=== PATIENT | male | born 1975 | race Caucasian/White ===

== ENCOUNTER 2017-06-03 08:54 | Emergency (ER) | payer SELFPAY ==
[2017-06-03 08:57] VITALS: BP 132/85; BMI 27.3
--- NOTE | 2017-06-03 09:22 | DR.GENAD ---
HPI - PCP Primary Care Physician: ELVIRA - HPI Comment HPI Comment: NO DRAINAGE OR FEVER. STARTED 3 DAYS AGO. - Complaint/Symptoms Chief Complaint Doctors Comments: REDNESS AND PAIN ABOVE LT KNEE. Chief Complaint:: PT. C/O POSSIBLE STAPH INFECTION TO ABOVE LEFT KNEE. AREA APPEARED ON SATURDAY. NO ACTIVE DRAINING BUT AREA IS REDDENED AND PAINFUL. - Nurses notes reviewed Nurses Notes Review: Yes - Source History Provided: Patient - Mode of Arrival Mode of Arrival: Ambulatory - Timing Onset of Chief Complaint: 05/31/17 Came on: Suddenly - Duration Duration: Constant Duration: Days - Severity Severity: Moderate PMH - PMH Past Medical History: No Past Surgical History: Yes Surgical History: Other Past Surgical History Comment: CARPAL TUNNEL - Family History History of Family Medical Conditions: No - Social History Does patient currently use any type of tobacco product: No Have you used tobacco products in the last 12 months: No Type of Tobacco Use: None Does any household member use tobacco: No Alcohol Use: None Do you use any recreational Drugs:: No Lives With: Spouse Lives Where: Home - infectious screening In the last 2 months have you had wt loss of >10#?: NO Have you had fever, night sweats or hemotysis?: No Have you traveled outside the country in the last 6 months?: No Isolation: Standard ROS - Review of Systems Constitutional: No Symptoms Reported Eyes: No Symptoms Reported ENTM: No Symptoms Reported Respiratoy: No Symptoms Reported Cardiovascular: No Symptoms Reported Gastrointestinal/Abdominal: No Symptoms Reported Genitourinary: No Symptoms Reported Neurological: No Symptoms Reported Musculoskeletal: No Symptoms Reported Integumentary: Other (REDNESS AND SWELLING BELOW LEFT KNEE. NO DRAINAGE.) PE - Vital Signs Vitals: Temperature 98.0 F Pulse Rate 78 Respiratory Rate 17 Blood Pressure 132/85 O2 Sat by Pulse Oximetry 97 - General Limitations: No Limitations General Appearance: Alert - Head Head Exam: Normal Inspection - Eyes Eye exam: Normal Appearance - ENT ENT Exam: Normal External Ear Exam External Ear Exam: Normal External Inspection TM/Canal Exam: Bilateral Normal Nose Exam: Normal Nose Exam Mouth Exam: Normal Inspection Throat Exam: Normal Inspection - Neck Neck Exam: Trachea Midline - Chest Chest Inspection: Symmetric Chest Wall Rise - Respiratory Respiratory Exam: Normal Lung Sounds Bilat Respiratory Exam: Bilateral Clear to Auscultation - Cardiovascular Cardiovascular Exam: Regular Rate, Normal Rhythm, Normal Heart Sounds - Abdominal Exam Abdominal Exam: Normal Bowel Sounds, Soft. negative: Tenderness - Extremities Extremities Exam: Tenderness (BELOW LEFT KNEE OVER AREA OF REDNEE AND TENDERNESS.) - Back Back Exam: Normal Inspection - Neurologic Neurological Exam: Alert, Oriented X3 - Psychiatric Psychiatric Exam: Normal Affect, Normal Mood - Skin Skin Exam: Normal Color MDM - Differential Diagnosis Differential Diagnosis: CELLULITIS Course - Treatment Treatment: SEE ORDERS. - Education/Counseling Education/Counseling: Patient, Education Educated On: Diagnosis, Needs for Follow Up - Diagnosis Discharge Problem: Cellulitis - Discharge Plan Disposition: 01 HOME, SELF-CARE Condition: Stable Prescriptions: Ibuprofen [MOTRIN TAB 600 MG *] 600 mg PO TID PRN #20 tab PRN Reason: Pain/Inflammation Sulfamethoxazole-Trimethoprim [BACTRIM DS TAB 800/160 MG *] 1 tab PO BID #20 tab Tramadol HCl 50 mg PO Q8H PRN #12 tablet PRN Reason: - Follow ups/Referrals Follow ups/Referrals: MARY FELIX [Primary Care Provider] - 3 days - Instructions Instructions: Cellulitis Additional Instructions: RETURN TO ED IF WORSE.
== END 2017-06-03 09:41 | disposition home or self-care (01) ==
LOC: ER 09:01
DX: L03.116 Cellulitis of left lower limb (principal)
CPT/HCPCS: 99281; 99282